=== PATIENT | female | born 1990 | race Caucasian/White ===

== ENCOUNTER 2018-04-14 11:07 | Outpatient (CLI) | payer OTHER ==
[2018-04-14 12:13] LABS: Appearance,Urine Cloudy (Clear); Bacteria,Urine Moderate /hpf; Bilirubin,Urine Negative (Negative); Blood,Urine Negative (Negative); Color,Urine Yellow; Glucose,Urine (UA) Negative (Negative); Ketones,Urine Negative (Negative); Leukocyte Esterase,Urine Moderate (Negative); Mucus,Urine Occasional /hpf; Nitrite,Urine Negative (Negative); PH, Urine 6.5 (5.0-8.0); Protein,Urine Trace (Negative); RBC,Urine <1 /hpf (0-5); Specific Gravity,Urine 1.016 (1.001-1.035); Squamous Epithelial Cell,Urine 6 /hpf (0-4); Urobilinogen,Urine <2.0 mg/dL (<2.0); WBC,Urine 8 /hpf (0-5)
[2018-04-14 12:17] LABS: ALT 36 U/L (9-52); AST 19 U/L (14-36); Blood Urea Nitrogen 8 mg/dL (7-17); LDH 395 U/L (313-618); Uric Acid 4.5 mg/dL (3.7-7.4)
[2018-04-14 12:35] LABS: Basophils % (A) 0 %; Eosinophils # (A) 0.1 k/uL (0-0.7); Eosinophils % (A) 1 %; HCT 34.5 % (34.0-46.0); HGB 11.3 gm/dL (11.4-16.0); Lymphocytes # (A) 1.3 k/uL (1.0-4.8); Lymphocytes % (A) 12 %; MCH 29.9 pg (25.0-35.0); MCHC 32.8 g/dL (31.0-37.0); MCV 91.1 fL (80.0-100.0); Mean Platelet Volume 7.8; Monocytes # (A) 0.5 k/uL (0-1.0); Monocytes % (A) 5 %; Neutrophils # (A) 8.4 k/uL (1.3-7.7); Neutrophils % (A) 81 %; Platelet Count 337 k/uL (150-450); RBC 3.79 m/uL (3.80-5.40); RDW 14.2 % (11.5-15.5); WBC 10.4 k/uL (3.8-10.6)
[2018-04-14 13:04] VITALS: BP 114/68; PULSE 89; RESP 16; TEMP 98.2
--- NOTE | 2018-04-15 08:45 | P.MSEPDOC ---
Presenting Problems - Arrival Data Date of Arrival on Unit: 04/14/18 Time of Arrival on Unit: 11:07 Mode of Transport: Ambulatory - Complaint OB-Reason for Admission/Chief Complaint: Elevated Blood Pressure Medical History - Information : 1 Para: 0 Term: 0 : 0 Abortions: Spontaneous or Elective: 0 Number of Living Children: 0 - Gestational Age Gestational Age by MILA (wks/days): 38 Weeks and 3 Days Review of Systems - Review of Systems Constitutional: No problems Breast: No problems ENT: No problems Cardiovascular: No problems Respiratory: No problems Gastrointestinal: No problems Genitourinary: No problems Musculoskeletal: No problems Neurological: No problems Skin: No problems Vital Signs - Temperature Temperature: 98.2 F Temperature Source: Tympanic - Pulse Right Brachial Pulse Rate: 89 Pulse Assessment Method: Automatic Cuff - Respirations Respiratory Rate: 16 Oxygen Delivery Method: Room Air - Blood Pressure Right Arm Blood Pressure: 114/68 Blood Pressure Mean: 83 Blood Pressure Source: Automatic Cuff Medical Screen Scoring (Pre) - Cervical Exam Dilation: Exam Deferred Membranes: Intact - Uterine Contractions Frequency: N/A Duration: N/A Intensity: N/A - Maternal Vital Signs Maternal Temperature: N/A Signs of Preeclampsia: N/A Maternal Respirations: N/A - Pain Assessment Pain Scale Used: Numeric (1 - 10) Pain Intensity: 0 Pain Management Goal: 0 - Maternal Trauma Maternal Trauma: N/A - Assessment Baseline FHR: 145 Heart Rate - NICHD Category: Category I (Normal) = 0 NST: Reactive Position: N/A - Total Score Total Score (Pre): 0 - Level of Risk Level of Risk: N/A Physician Notification (Pre) - Physician Notified Physician Notified Date: 04/14/18 Physician Notified Time: 12:45 Physician/Practitioner Notifed:: Dr. Benedict Spoke With: Dr. Benedict New Order Received: Yes - Notification Comment Comment: d/c home Disposition - Disposition OB Disposition: Discharge to home Discharge Date: 04/14/18 Discharge Time: 12:45 I agree with the RN Medical Screening Exam: Yes Risk & Benefit of care provided described in d/c instruction: Yes Diagnosis: GESTATIONAL HTN W/O SIGNIFICANT PROTEINURIA, THIRD TRIMESTER
== END 2018-04-14 13:05 | disposition home or self-care (01) ==
LOC: FBPOP 11:07
PROVIDERS: ATTEND Obstetrics & Gynecology
DX: O13.3 Gestational [pregnancy-induced] hypertension without significant proteinuria, third trimester (principal); Z3A.38 38 weeks gestation of pregnancy
CPT/HCPCS: 59025; 82565; 83615; 84450; 84460; 84520; 84550; 85025; 81001; 82043; 82570; G0463; 99213

== ENCOUNTER 2018-04-25 12:19 | Inpatient (IN) | payer OTHER ==
[2018-04-25] MEDS ORDERED: METHYLERGONOVINE 0.2 MG/ML 1 ML AMP IM PRN (13:13)
[2018-04-25] MEDS ORDERED: LIDOCAINE 1% (PF) 10 MG/ML (30 ML SDV) SQ PRN (13:13)
[2018-04-25] MEDS ORDERED: TERBUTALINE 1 MG/ML VIAL SQ PRN (13:13)
[2018-04-25] MEDS ORDERED: CARBOPROST TROMETHAMINE 250 MCG/ML 1 ML AMP IM PRN (13:13)
[2018-04-25] MEDS ORDERED: OXYTOCIN 10 UNIT/ML 1 ML VIAL IM PRN (13:13)
[2018-04-25] MEDS ORDERED: OXYTOCIN 20 UNITS/1000 ML NS 1,000 ML IV SCH (13:15)
[2018-04-25] MEDS ORDERED: LACTATED RINGERS 1,000 ML IV SCH (13:15)
[2018-04-25 13:24] VITALS: BMI 42.4
[2018-04-25] MEDS: LACTATED RINGERS 1,000 ML IV SCH ×3 (13:58→22:36)
[2018-04-25 14:40] LABS: Basophils % (A) 0 %; Eosinophils # (A) 0.1 k/uL (0-0.7); Eosinophils % (A) 0 %; HCT 34.2 % (34.0-46.0); HGB 11.5 gm/dL (11.4-16.0); Lymphocytes # (A) 1.1 k/uL (1.0-4.8); Lymphocytes % (A) 6 %; MCH 30.9 pg (25.0-35.0); MCHC 33.5 g/dL (31.0-37.0); MCV 92.1 fL (80.0-100.0); Mean Platelet Volume 8.4; Monocytes # (A) 0.7 k/uL (0-1.0); Monocytes % (A) 4 %; Neutrophils # (A) 16.8 k/uL (1.3-7.7); Neutrophils % (A) 90 %; Platelet Count 301 k/uL (150-450); RBC 3.71 m/uL (3.80-5.40); WBC 18.8 k/uL (3.8-10.6)
--- NOTE | 2018-04-25 16:48 | P.MSEPDOC ---
Presenting Problems - Arrival Data Date of Arrival on Unit: 04/25/18 Time of Arrival on Unit: 12:23 Mode of Transport: Ambulatory - Complaint OB-Reason for Admission/Chief Complaint: Rule Out PROM Comment: pt arrived c/o srom at 1200 Medical History - Information : 1 Para: 0 Term: 0 : 0 Abortions: Spontaneous or Elective: 0 Number of Living Children: 0 - Gestational Age Gestational Age by MILA (wks/days): 40 Weeks and 0 Days Review of Systems - Review of Systems Constitutional: No problems Breast: No problems ENT: No problems Cardiovascular: No problems Respiratory: No problems Gastrointestinal: No problems Genitourinary: No problems Musculoskeletal: No problems Neurological: No problems Skin: No problems Vital Signs - Temperature Temperature: 98.7 F Temperature Source: Oral - Pulse Right Brachial Pulse Rate: 104 Pulse Assessment Method: Automatic Cuff - Respirations Respiratory Rate: 18 Oxygen Delivery Method: Room Air O2 Sat by Pulse Oximetry: 97 - Blood Pressure Right Arm Blood Pressure: 124/82 Blood Pressure Mean: 96 Blood Pressure Source: Automatic Cuff Medical Screen Scoring (Post) - Cervical Exam Dilation: 1-3 cm = 1 Effacement: Exam Deferred Membranes: Ruptured = 3 - Uterine Contractions Frequency: > 5 minutes apart = 1 Duration: > 40 seconds = 2 Intensity: N/A - Maternal Vital Signs Maternal Temperature: N/A Maternal Blood Pressure: N/A Signs of Preeclampsia: N/A Maternal Respirations: N/A - Pain Assessment Pain Scale Used: Numeric (1 - 10) Pain Intensity: 1 Pain Management Goal: 1 Pain Behavior: Vocalization - Maternal Trauma Maternal Trauma: N/A - Assessment Heart Rate: 150 Heart Rate - NICHD Category: Category I (Normal) = 0 NST: Reactive Position: N/A Station: N/A - Total Score Total Score (Post): 7 - Post Treatment Level of Risk Post Treatment Level of Risk: Medium (6-9) Physician Notification (Post) - Physician Notified Physician Notified Date: 04/25/18 Physician Notified Time: 12:50 Spoke With: dr lindsay New Order Received: Yes - Notification Comment Comment: positive amnisure. admit pt for labor Disposition - Disposition OB Disposition: Admit Transferred to:: st 8 I agree with the RN Medical Screening Exam: Yes Risk & Benefit of care provided described in d/c instruction: Yes Diagnosis: RELATED CONDITIONS, UNSPECIFIED, THIRD TRIMESTER (SROM)
[2018-04-25] MEDS ORDERED: fentaNYL (PF) 50 MCG/ML 5 ML AMP ONE (17:11)
[2018-04-25] MEDS ORDERED: BUPIVACAINE (PF) 0.25% 30 ML VIAL ONE (17:11)
[2018-04-25] MEDS ORDERED: SODIUM CHLORIDE 0.9% 100 ML BAG ONE (17:11)
[2018-04-25] MEDS ORDERED: AMPICILLIN 2,000 MG in SODIUM CHLORIDE 0.9% 100 ML IVPB STA (22:04)
[2018-04-25] MEDS ORDERED: ACETAMINOPHEN IV (For NPO) 1,000 MG in EMPTY BAG 1 BAG IVPB ONE (23:07)
[2018-04-25 23:41] LABS: Basophils % (A) 0 %; Eosinophils # (A) 0.1 k/uL (0-0.7); Eosinophils % (A) 1 %; HCT 32.8 % (34.0-46.0); HGB 11.1 gm/dL (11.4-16.0); Lymphocytes # (A) 0.7 k/uL (1.0-4.8); Lymphocytes % (A) 4 %; MCH 30.4 pg (25.0-35.0); MCHC 33.8 g/dL (31.0-37.0); MCV 89.9 fL (80.0-100.0); Mean Platelet Volume 8.3; Monocytes # (A) 0.9 k/uL (0-1.0); Monocytes % (A) 4 %; Neutrophils # (A) 17.7 k/uL (1.3-7.7); Neutrophils % (A) 90 %; Platelet Count 337 k/uL (150-450); RBC 3.65 m/uL (3.80-5.40); RDW 13.9 % (11.5-15.5); WBC 19.6 k/uL (3.8-10.6)
[2018-04-26] MEDS: AMPICILLIN 1,000 MG in SODIUM CHLORIDE 0.9% 50 ML IVPB SCH ×4 (01:59→14:15)
[2018-04-26] MEDS ORDERED: SIMETHICONE 80 MG CHEWABLE PO PRN (03:27)
[2018-04-26] MEDS ORDERED: LANOLIN CREAM 5 GM TUBE TOPICAL PRN (03:27)
[2018-04-26] MEDS ORDERED: ZOLPIDEM 5 MG TAB PO PRN (03:27)
[2018-04-26] MEDS ORDERED: HYDROcodone/APAP 5-325MG 1 EACH TAB PO PRN (03:27)
[2018-04-26] MEDS ORDERED: diphenhydrAMINE 50 MG/ML 1 ML VIAL IVP PRN ×2 (03:27)
[2018-04-26] MEDS ORDERED: HYDROCORTISONE 2.5% RECTAL CREAM 30 GM TUBE RECTAL PRN (03:27)
[2018-04-26] MEDS ORDERED: BENZOCAINE/MENTHOL SPRAY 1 GM/SPRAY AEROSOL TOPICAL PRN (03:27)
[2018-04-26] MEDS ORDERED: WITCH HAZEL 1 EACH MED..PAD TOPICAL PRN (03:27)
[2018-04-26] MEDS ORDERED: diphenhydrAMINE 25 MG CAP PO PRN (03:27)
[2018-04-26] MEDS ORDERED: diphenhydrAMINE 50 MG CAP PO PRN (03:27)
--- NOTE | 2018-04-26 03:32 | P.HPOB ---
History of Present Illness H&P Date: 04/26/18 Chief Complaint: Intrauterine at term: Spontaneous rupture membranes Patient is a 27-year-old at 40 weeks gestation who arrives following spontaneous rupture membranes. She reports her membranes broke at approximately 12 PM on 04/25/2018. She was having some contractions but not strong or regular. Due to same Pitocin augmentation of labor will be provided. Her course has been unremarkable and she is feeling well at this time. Pertinent labs do include O+ blood type Rh antibody was negative, rubella immune, hepatitis B surface antigen/RPR/HIV were all negative as well as group B strep. Assessment intrauterine at term: Plan expect spontaneous vaginal delivery with epidural used for analgesia Past Medical History Past Medical History: No Reported History History of Any Multi-Drug Resistant Organisms: None Reported Past Surgical History: No Surgical Hx Reported Past Psychological History: No Psychological Hx Reported Smoking Status: Former smoker Past Alcohol Use History: None Reported Past Drug Use History: None Reported - Past Family History Father Family Medical History: COPD Medications and Allergies Home Medications Medication Instructions Recorded Confirmed Type Pnv,Calcium 72/Iron/Folic Acid 1 tab PO DAILY 04/14/18 04/25/18 History [ Plus Tablet] Allergies Allergy/AdvReac Type Severity Reaction Status Date / Time No Known Allergies Allergy Verified 04/25/18 12:30 Exam Osteopathic Statement: *. No significant issues noted on an osteopathic structural exam other than those noted in the History and Physical/Consult. - Vital Signs Vital signs: Vital Signs Temp Pulse Resp BP Pulse Ox 04/25/18 16:48 98.7 F 104 H 18 124/82 97 04/25/18 13:04 98.7 F 104 H 18 124/82 97 04/25/18 12:31 98.7 F 104 H 18 124/82 Intake and Output 04/25/18 04/25/18 04/26/18 14:59 22:59 06:59 Output Total 200 Balance -200 Output: Urine 200 Other: # Voids 1 Weight 105.233 kg - OBG Physical Exam Breast: both: normal (no masses) Abdomen: bowel sounds normal, no diffuse tenderness, no bruit present, no guarding noted, no hepatomegaly, no splenomegaly, no mass Vulva: both: normal Vagina: normal moisture, no discharge Cervix: 2 cm dilated Cervix: no lesion, no discharge Uterus: normal size, normal contour Adnexa: both: normal Anus/Rectum: normal perianal skin, no rectal mass, no hemorrhoids, heme negative Results Result Diagrams: 04/25/18 23:21 Abnormal Lab Results - Last 24 Hours (Table) 04/25/18 04/25/18 Range/Units 13:45 23:21 WBC 18.8 H 19.6 H (3.8-10.6) k/uL RBC 3.71 L 3.65 L (3.80-5.40) m/uL Hgb 11.1 L (11.4-16.0) gm/dL Hct 32.8 L (34.0-46.0) % Neutrophils # 16.8 H 17.7 H (1.3-7.7) k/uL Lymphocytes # 0.7 L (1.0-4.8) k/uL
--- NOTE | 2018-04-26 03:34 | P.PROBDLV ---
Vaginal Delivery Note - . Vaginal Delivery Note: During the course of labor the patient had an elevation of temperature to T-max of 102. Due to elevation of temperature antibiotics were initiated. A CBC and blood cultures were also obtained. One dose ovary was also provided. Temperatures did return to normal following these treatment measures. heart tones while mildly tachycardic initially was elevated temperatures did regulate and were back to normal 130s to 140s and reactive once her temperature resolved. Following these treatment measures the patient did request to complete and pushing with spontaneous vaginal delivery of a viable female over a second-degree perineal laceration. Following delivery of the head from left occiput anterior position anterior posterior shoulders were easily delivered with gentle downward and upward traction followed by the remainder of the baby. Mouth nares were then bulb suctioned and baby was placed on mother's abdomen where the umbilical cord was clamped cut usual fashion an nursery personnel was present to assume care. Placenta was then delivered intact and Pitocin was added to the IV. scores and weight are pending, baby was taken special care nursery as baby was having some flaring with breathing. A second-degree perineal laceration was repaired with 3-0 Vicryl following 1% Xylocaine for analgesia. There was also a right vaginal wall laceration which was reapproximated in interrupted fashion with 3-0 Vicryl. Mother is stable following delivery.
[2018-04-26] MEDS: IBUPROFEN 600 MG TAB PO PRN ×2 (04:13→09:38)
[2018-04-26] MEDS ORDERED: SENNOSIDES-DOCUSATE SODIUM 1 EACH TAB PO SCH (08:00)
[2018-04-26] MEDS: ACETAMINOPHEN TAB 325 MG TAB PO PRN ×2 (12:11→17:40)
[2018-04-26] MEDS: LACTATED RINGERS 1,000 ML IV SCH (14:15)
[2018-04-26 16:07] VITALS: BP 107/58; PULSE 87; RESP 17; TEMP 97.7
== END 2018-04-26 17:45 | disposition home or self-care (01) | DRG 774 ==
LOC: FBPOP 12:19 → 4FBP 13:01
PROVIDERS: ADMIT Obstetrics & Gynecology; ATTEND Obstetrics & Gynecology
PROC: 3E0R3NZ Introduction of Analgesics, Hypnotics, Sedatives into Spinal Canal, Percutaneous Approach (ICD-10-PCS; principal; 2018-04-25)
PROC: 10E0XZZ Delivery of Products of Conception, External Approach (ICD-10-PCS; principal; 2018-04-25)
PROC: 0KQM0ZZ Repair Perineum Muscle, Open Approach (ICD-10-PCS; principal; 2018-04-25)
PROC: 00HU33Z Insertion of Infusion Device into Spinal Canal, Percutaneous Approach (ICD-10-PCS; principal; 2018-04-25)
DX: O48.0 Post-term pregnancy (principal); O75.2 Pyrexia during labor, not elsewhere classified; Z37.0 Single live birth; Z3A.40 40 weeks gestation of pregnancy; O70.1 Second degree perineal laceration during delivery; Z82.5 Family history of asthma and other chronic lower respiratory diseases; Z87.891 Personal history of nicotine dependence
CPT/HCPCS: 59025; 84112; 85025; 87040; 88307; 99213

== ENCOUNTER 2019-01-29 09:20 | Emergency (ER) | payer OTHER ==
[2019-01-29 09:30] VITALS: BP 127/85; PULSE 83; RESP 18; TEMP 98.1
--- NOTE | 2019-01-29 10:25 | ED ---
Upper Extremity HPI - General Chief Complaint: Extremity Injury, Upper Stated Complaint: hand injury Time Seen by Provider: 01/29/19 10:07 Source: patient, RN notes reviewed, old records reviewed Mode of arrival: ambulatory Limitations: no limitations - History of Present Illness Initial Comments: Patient is a 20-year-old female presents for a short stay with chief complaint of Finger pain. Patient reports that she fell yesterday. Patient states that she has pain with range of motion of the left index finger. She denies any previous hand injuries or broken bones. He reports normal sensation distally. No open lacerations.Patient denies any recent fever, chills, shortness of breath, chest pain, back pain, abdominal pain, nausea vomiting, numbness or tingling, dysuria or hematuria, constipation or diarrhea, headaches or visual changes, or any other current symptoms - Related Data Home Medications Medication Instructions Recorded Confirmed No Known Home Medications 01/29/19 01/29/19 Allergies Allergy/AdvReac Type Severity Reaction Status Date / Time No Known Allergies Allergy Verified 01/29/19 10:06 Review of Systems ROS Statement: Those systems with pertinent positive or pertinent negative responses have been documented in the HPI. ROS Other: All systems not noted in ROS Statement are negative. Past Medical History Past Medical History: No Reported History History of Any Multi-Drug Resistant Organisms: None Reported Past Surgical History: No Surgical Hx Reported Past Psychological History: No Psychological Hx Reported Smoking Status: Former smoker Past Alcohol Use History: Occasional Past Drug Use History: None Reported - Past Family History Father Family Medical History: COPD General Exam - General Exam Comments Initial Comments: This is a 20-year-old female. Alert and oriented 3. Patient appears in no significant distress. Limitations: no limitations General appearance: alert, in no apparent distress Head exam: Present: atraumatic, normocephalic, normal inspection Eye exam: Present: normal appearance, PERRL, EOMI. Absent: scleral icterus, conjunctival injection, periorbital swelling ENT exam: Present: normal exam, mucous membranes moist Neck exam: Present: normal inspection. Absent: tenderness, meningismus, lymphadenopathy Respiratory exam: Present: normal lung sounds bilaterally. Absent: respiratory distress, wheezes, rales, rhonchi, stridor Cardiovascular Exam: Present: regular rate, normal rhythm, normal heart sounds. Absent: systolic murmur, diastolic murmur, rubs, gallop, clicks GI/Abdominal exam: Present: normal bowel sounds. Absent: distended, tenderness, guarding, rebound, rigid Left Elbow exam: Present: normal inspection, full ROM Forearm Wrist exam: Present: normal inspection, full ROM Hand Wrist exam: Present: tenderness (over left index finger). Absent: normal inspection, full ROM, swelling, abrasion, laceration, ecchymosis, deformity, crepitus, dislocation Neuro motor exam: Present: wrist extension intact, thumb opposition intact, thumb IP flexion intact, thumb adduction intact, fingers 2-5 abduction intact Vascular: Present: normal capillary refill Back exam: Present: normal inspection Neurological exam: Present: alert, oriented X3, CN II-XII intact Psychiatric exam: Present: normal affect, normal mood Skin exam: Present: warm, dry, intact, normal color. Absent: rash Course Vital Signs 01/29/19 09:27 Temperature 98.1 F Pulse Rate 83 Respiratory 18 Rate Blood Pressure 127/85 O2 Sat by Pulse 98 Oximetry Procedures - Orthopedic Splinting/Casting Injury #1 Side: left Upper Extremity Injury Location: finger Upper Extremity Immobilizer: aluminum form splint, finger (other) Medical Decision Making - Medical Decision Making Patient is a 20-year-old female presents return today after a left second phal anx injury after fall. Patient has an obliquely displaced proximal phalanx fracture. Patient was placed in an aluminum form splint and paulo taped as well. I discussed the Patient multiple times that she needs follow-up with admission specialist. Patient will be following up with them tomorrow. Discussed strict return parameters. We'll give Patient a short course of pain medication and anti-inflammatory medicine for pain. Discussed remaining the splint was seen by orthopedic. Patient agrees to treatment plan and will comply. - Radiology Data Radiology results: report reviewed Obliquely mildly displaced fracture at the second level of the proximal phalangeal neck. Slight dorsal angulation as well. Disposition Clinical Impression: Finger fracture, left Disposition: HOME SELF-CARE Condition: Good Instructions (If sedation given, give patient instructions): Finger Fracture (ED) Additional Instructions: Patient has a follow-up with admission specialist tomorrow. Patient needs to remain in the splint. He is Motrin and the pain medicine as needed for pain. Return to the emergency department if any alarming signs or symptoms occur. Is patient prescribed a controlled substance at d/c from ED?: No Referrals: None,Stated [Primary Care Provider] - 1-2 days Pawan Lima MD [Medical Doctor] - 1-2 days Time of Disposition: 11:13
--- NOTE | 2019-01-29 10:47 | XR ---
EXAMINATION TYPE: XR hand complete LT DATE OF EXAM: 01/29/2019 COMPARISON: NONE HISTORY: 28-year-old female fall, pain and swelling TECHNIQUE: 3 views FINDINGS: Oblique, mildly displaced fracture at the level of the second proximal phalangeal neck. No subluxatio n or dislocation. Fracture shows slight dorsal angulation as well. IMPRESSION: Oblique, mildly displaced acute fracture at the level of the second proximal phalangeal neck. Slight dorsal angulation as well.
[2019-01-29] MEDS ORDERED: ACET/COD 300 MG/30 MG STARTER PACK 6 TAB BTL PO STA (11:22)
== END 2019-01-29 11:32 | disposition home or self-care (01) ==
LOC: EC 09:20
DX: S62.611A Displaced fracture of proximal phalanx of left index finger, initial encounter for closed fracture (principal); Z87.891 Personal history of nicotine dependence; W19.XXXA Unspecified fall, initial encounter
CPT/HCPCS: 99284